=== PATIENT | male | born 1965 | race Caucasian/White ===

== ENCOUNTER 2024-09-24 21:41 | Emergency (ER) | payer OTHER, SELFPAY ==
[2024-09-24 21:45] VITALS: BP 116/74
[2024-09-24 22:07] LABS: % Basophils 0.8 % (0-2); % Eosinophils 4.1 % (0-6); % Immature Granulocytes 0.2 % (0-0.5); % Lymphocytes 19.4 % (20.5-51.1); % Monocytes 7.8 % (1.7-9.3); % Neutrophils 67.7 % (42.2-75.2); Absolute Basophils 0.1 10^3/uL (0-0.2); Absolute Eosinophils 0.3 10^3/uL (0-0.7); Absolute Lymphocytes 1.3 10^3/uL (1.2-3.4); Absolute Monocytes 0.5 10^3/uL (0.1-0.6); Absolute Neutrophils 4.5 10^3/uL (1.4-6.5); Hematocrit 42.3 % (39.0-52.0); Hemoglobin 14.5 g/dL (13.0-18.0); Mean Corp Hgb Conc. 34.3 g/dL (33.0-37.0); Mean Corpuscular Hgb 29.7 pg (27.0-31.0); Mean Corpuscular Volume 86.7 fL (80.0-94.0); Nucleated Red Blood Cells % 0 % (-); Platelet Count 221 10^3/uL (130-400); Red Blood Cell Count 4.88 10^6/uL (4.70-6.10); Red Cell Dist. Width 14.5 % (11.5-14.5); White Blood Cell Count 6.6 10^3/uL (4.8-10.8)
[2024-09-24 22:13] LABS: Erythrocyte Sed Rate 7 mm/hour (0-20)
[2024-09-24 22:17] LABS: Lactic Acid 2.7 mmol/L (0.7-2.0)
[2024-09-24 22:23] LABS: Blood Urea Nitrogen 14 mg/dl (9-20); Calcium 9.8 mg/dl (8.4-10.2); Carbon Dioxide 25 mmol/L (22-30); Glucose 94 mg/dl (70-99); eGFR > 60.00
[2024-09-24 22:26] LABS: Chloride 110 mmol/L (98-107); Potassium 4.8 mmol/L (3.5-5.1); Sodium 143 mmol/L (135-145)
--- NOTE | 2024-09-25 00:14 | ED.GENMED ---
History of Present Illness
General
Chief Complaint: Musculo-Skeletal Complaint
Source: patient
Time Seen by Provider: 09/24/24 23:56
History of Present Illness
History of Present Illness:
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 He fell and hit it about 2 and half weeks ago. Patient states that it was really red and swollen but now is improved. He started himself on
Bactrim about 4 days ago. He states it does seem much better and was just curious as to whether anything else should be done. No fevers. No further swelling and the swelling and redness of both improved.
Past History
Past History
ED Past Medical History: None
Phy Exam
Physical Exam
Physical Exam:
CONSTITUTIONAL Vital signs reviewed, Patient alert and oriented to person, place and time. Well-appearing
HEAD atraumatic, normocephalic.
EYES eyelids normal to inspection, Extraocular muscles intact, Conjunctiva normal, Sclera normal.
NECK normal range of motion, Trachea midline, no jugular venous distention.
RESP no respiratory distress
BACK No obvious deformities
UPPER EXTREMITY Gross Range of motion normal, gross motor strength normal. Does have a minor bursitis noted at the left olecranon. Scabbed lesion to the proximal portion of it that is well-healed. There is minimal redness. The olecranon bursa is
soft and minimally fluctuant. It is certainly not tense and with no significant erythema. Certainly no cellulitis
LOWER EXTREMITY Gross range of motion normal, Gross motor strength normal
NEURO Speech normal, No focal motor deficits include, Soraida coma scale 15, Memory normal, Cranial Nerves intact to screening exam.
SKIN Skin warm, dry, and normal in color.
PSYCHIATRIC Patient oriented to person place and time, Normal affect.
Course
Orders/Labs/Results
Orders:
Orders
09/24/24 21:51
CR Elbow - Left Min 3 Views Urgent
Comment:
Reason For Exam: swollen, red, warmth and pain
09/24/24 21:57
Basic Metabolic Panel Urgent
C-Reactive Protein Urgent
Complete Blood Count/With Diff Urgent
Lactic Acid Urgent
Sedimentation Rate [Erythrocyte Sed Rate] Urgent
Abnormal Lab Results
09/24/24
21:57
Lymphocytes % 19.4 L %
(20.5-51.1)
Chloride 110 H mmol/L
(98-107)
Lactic Acid 2.7 H mmol/L
(0.7-2.0)
09/24/24 21:57
09/24/24 21:57
Vital Signs
Initial and Last Documented VS:
Initial Vital Signs
Temp Pulse Resp BP Pulse Ox
97.9 F 69 14 116/74 99
09/24/24 21:45 09/24/24 21:45 09/24/24 21:45 09/24/24 21:45 09/24/24 21:45
Last Documented Vital Signs
Temp Pulse Resp BP Pulse Ox
97.9 F 69 14 116/74 99
09/24/24 21:45 09/24/24 21:45 09/24/24 21:45 09/24/24 21:45 09/24/24 21:45
MDM/Problems Addressed
Differential Diagnosis Includes:
Infected olecranon bursa, bursitis, joint infection, fracture
MDM/Problems Addressed:
Olecranon bursitis
*Radiology
Radiology exam reviewed: radiology read reviewed and all reviewed NAD by ED Provider
*Pulse Oximetry
Patient hypoxic: no
*Critical Care Note
Total Time (30-74mins, 75-104mins- exclusive of procedures): Not Applicable
Data Reviewed
Source: patient
Further Testing Considered But Not Given:
Consider needle aspiration but symptoms improving
Patient Management
Escalation/DeEscalation of care consider admission/obs:
No tenseness noted. No surrounding infection. Continue Bactrim for now and advise warm compresses. He has planned follow-up with orthopedics in about a week
ED Attending Note
-
Portions of this chart may have been created with voice recognition software.� Occasional wrong word or��sound alike� substitutions may have occurred due to the inherent limitations of voice recognition software.
Discharge Plan
Departure
Patient Disposition: Home (Routine Discharge)
Date of Disposition: 09/25/24
Time of Disposition: 00:14
Patient with high blood pressure during this ER visit?: No
Discharge Problem:
Bursitis, olecranon
Instructions: Bursitis
Activity Restrictions/Additional Instructions:
Please apply warm compresses as discussed. Avoid leaning or putting pressure on your elbow. Follow-up with orthopedics as planned. Continue your antibiotics. Return immediately for increased swelling, increased redness or any other concerns.
Interventions
Interventions:
*Risk Screen - Suicide Last Done: 09/24/24 21:45
*General Assessment Last Done: 09/24/24 21:45
*Neglect/Abuse Screening Last Done: 09/24/24 21:45
Discharge Date and Time
Print Language: PARAGUAYAN
== END 2024-09-25 00:27 | disposition home or self-care (01) ==
LOC: EMR 21:41
PROVIDERS: EMERGENCY PHYSICIAN Emergency Medicine; FAMILY PHYSICIAN Nurse Practitioner Family
DX: M70.22 Olecranon bursitis, left elbow (principal)
CPT/HCPCS: 99283; 73080; 80048; 83605; 85025; 85652; 86140